=== PATIENT | female | born 1945 | race Caucasian/White ===

== ENCOUNTER 2019-08-30 11:42 | Emergency (ER) | payer MEDICARE, OTHER ==
[~2019-08-30] VITALS: Ht 172.7 cm; Wt 90.7 kg
[2019-08-30] MEDS ORDERED: SODIUM CHLORIDE 0.9% 500ML 500 ML IV STA (12:07)
[2019-08-30] MEDS ORDERED: CLONIDINE HCL 0.1 MG TAB PO ONE ×2 (12:15→14:15)
[2019-08-30] MEDS ORDERED: DIPHENHYDRAMINE HCL INJ 50 MG/ML VIAL IV ONE (12:15)
[2019-08-30] MEDS ORDERED: PROMETHAZINE 12.5MG/ NACL 0.9% 12.5 MG/50 ML BAG IV ONE (12:15)
[2019-08-30] MEDS ORDERED: DEXAMETHASONE SOD PHOS 10 MG/1 ML VIAL IV ONE (12:15)
[2019-08-30] MEDS ORDERED: ONDANSETRON HCL INJ 2MG/ML 2ML 2 MG/ML VIAL IV PRN (12:15)
[2019-08-30] MEDS ORDERED: HYDRALAZINE HCL 20 MG/ML VIAL IV ONE (12:15)
[2019-08-30] MEDS ORDERED: DEXAMETHASONE SOD PHOS 10 MG/1 ML VIAL ONE (12:55)
[2019-08-30] MEDS ORDERED: CLONIDINE HCL 0.1 MG TAB ONE ×2 (12:55→13:55)
[2019-08-30] MEDS ORDERED: DIPHENHYDRAMINE HCL INJ 50 MG/ML VIAL ONE (12:55)
[2019-08-30] MEDS ORDERED: PROMETHAZINE HCL (IM) 25 MG/ML VIAL ONE (12:55)
[2019-08-30] MEDS ORDERED: HYDRALAZINE HCL 20 MG/ML VIAL ONE (12:55)
[2019-08-30] MEDS ORDERED: SODIUM CHLORIDE 0.9% 50ML 50 ML ONE (12:56)
[2019-08-30] MEDS ORDERED: SODIUM CHLORIDE 0.9% 500ML 500 ML ONE (12:56)
[2019-08-30] MEDS ORDERED: ONDANSETRON HCL INJ 2MG/ML 2ML 2 MG/ML VIAL ONE (12:56)
[2019-08-30] MEDS ORDERED: LUNESTA3 MG (13:12)
[2019-08-30] MEDS ORDERED: ATORVASTATIN CA20 MG PO (13:12)
[2019-08-30] MEDS ORDERED: METOPROLOL SUCC50 MG PO (13:12)
[2019-08-30] MEDS ORDERED: LOSARTAN POTAS100 MG PO (13:12)
[2019-08-30] MEDS ORDERED: VITAMIN D32000 UNI2 (13:12)
[2019-08-30] MEDS ORDERED: OS-CAL 500-VIT1 EACH (13:12)
--- NOTE | 2019-08-30 13:28 | Diagnostic Imaging Report ---
Exams: Head and cervical spine CTs without IV contrast History: Headache, neck pain Comparison studies: None Technique: Axial images were obtained from the brain and cervical spine. Coronal and sagittal images reconstructed from the axial data. Dose modulation, iterative reconstruction, and/or weight based adjustment of the mA/kV was utilized to reduce the radiation dose to as low as reasonably achievable. Intravenous contrast: None Findings: Head CT: Scalp: No abnormalities. Bones: No fractures, blastic or lytic lesions. Extra-axial spaces: No masses. No fluid collections. Brain sulci: Mildly prominent. Ventricles: Mild compensatory dilatation. No hydrocephalus. Parenchyma: No abnormal densities. No masses, acute hemorrhage, acute or chronic vascular insults. Sellar/suprasellar region: No abnormalities. Craniocervical junction: The foramen magnum is patent. No Chiari one malformation. Included paranasal sinuses: Clear. Middle ear mastoid cavities: Clear. Cervical spine CT: Fractures: None. Soft tissues: No gross abnormalities. Atlantoaxial articulation: Intact. Alignment: Normal cervical lordotic curvature. Minimal degenerative retrolisthesis of C7 on T1. Cervicomedullary junction: No abnormalities. The foramen magnum is patent. Vertebrae: No infection or neoplasm. Degenerative changes: Degenerative changes present at the anterior atlantodental articulation with narrowing of the atlantodental interval with possible fusion of the dens with the anterior C1 arch and enthesophyte formation. Disc degeneration, mild at C2-C3 and at C3-C4, moderate C4-C5, severe at C5-C6 and at C6-C7 and mild at C7-T1 and T1-T2. Disc osteophyte complexes from C3 to C7 indent the thecal sac and result in mild canal stenosis. Advanced multilevel facet arthrosis with fused facets on the left at C7-T1. Multilevel uncovertebral and facet arthrosis result in multilevel foraminal stenosis which is severe right and moderate left at C3-C4 and at C4-C5, severe bilaterally at C5-C6 and moderate bilaterally at C6-C7. Moderate left and mild right foraminal stenosis at C7-T1 due to minimal anterolisthesis of C7 on T1 and facet arthrosis on the left. Incidental findings: Bilateral intraocular lens replacements. Mildly enlarged heterogeneous multinodular thyroid gland. Calcified atherosclerosis in the left carotid bulb. IMPRESSION: Head CT: 1. No acute abnormalities. 2. Mild age-related generalized parenchymal volume loss. Cervical spine CT: 1. No acute osseous abnormalities. 2. 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 3. Cannot exclude ligament, spinal cord and or vascular abnormalities on the basis of this examination. Signed by: Dr. Jaden Good M.D. on 08/30/2019 1:25 PM
[2019-08-30 14:28] VITALS: BP 149/72
== END 2019-08-30 14:26 | disposition home or self-care (01) ==
LOC: FSED 11:42
DX: G44.219 Episodic tension-type headache, not intractable (principal); S16.1XXA Strain of muscle, fascia and tendon at neck level, initial encounter; J04.0 Acute laryngitis; J06.9 Acute upper respiratory infection, unspecified; I10 Essential (primary) hypertension; E78.5 Hyperlipidemia, unspecified
CPT/HCPCS: 70450; 72125; 80053; 81003; 83518; 85025; 87400; 96374; 96375; 99284; J1100; J1200; J2405; J2550; J7040; J0360

== ENCOUNTER 2021-01-10 15:14 | Inpatient (IN) | payer MEDICARE, OTHER ==
[~2021-01-10] VITALS: Ht 172.7 cm; Wt 85.4 kg
[~2021-01-10 15:14] MED LIST: ATORVASTATIN CA20 MG PO; LOSARTAN POTAS100 MG PO; LUNESTA3 MG PO; METOPROLOL SUCC50 MG PO; OS-CAL 500-VIT1 EACH; VITAMIN D32000 UNI2 PO
[2021-01-10] MEDS ORDERED: ONDANSETRON HCL INJ 2MG/ML 2ML 2 MG/ML VIAL IV STA (15:30)
[2021-01-10] MEDS ORDERED: SODIUM CHLORIDE 0.9% 1000ML 1,000 ML IV STA (15:30)
[2021-01-10 15:38] LABS: BASOPHILS % 0.5 % (0.0-1.0); EOSINOPHILS # (AUTO) 0.1 (0.0-0.4); EOSINOPHILS % 1.8 % (0.0-6.0); HEMATOCRIT 47.7 % (34.2-44.1); HEMOGLOBIN 15.6 g/dL (12.0-16.0); LYMPHOCYTES # (AUTO) 1.7 (1.0-3.2); LYMPHOCYTES % 23.1 % (18.0-39.1); MEAN CORPUSCULAR HEMOGLOBIN 31.1 pg (28-32); MEAN CORPUSCULAR HGB CONC 32.7 g/dL (31-35); MONOCYTES # (AUTO) 0.8 (0.2-0.8); MONOCYTES % 10.9 % (4.4-11.3); NEUTROPHILS # (AUTO) 4.7 (2.1-6.9); NEUTROPHILS % 63.3 % (38.7-80.0); PLATELET COUNT 286 x10e3/uL (140-360); RED BLOOD COUNT 5.02 x10e6/uL (3.6-5.1); RED CELL DISTRIBUTION WIDTH 12.7 % (11.7-14.4)
[2021-01-10 16:02] LABS: ALBUMIN 3.8 g/dL (3.5-5.0); ANION GAP 16.4 mmol/L (8-16); CALCIUM 9.7 mg/dL (8.4-10.2); CREATININE, SERUM 0.99 mg/dL (0.57-1.11); MAGNESIUM 1.9 MG/DL (1.3-2.1); POTASSIUM 3.4 mmol/L (3.5-5.1)
[2021-01-10 16:09] LABS: CREATINE KINASE MB 1.7 ng/mL (0-5.0)
[2021-01-10] MEDS ORDERED: POTASSIUM CHLORIDE 20 MEQ TAB CR PO STA (17:30)
[2021-01-10] MEDS ORDERED: ENOXAPARIN SODIUM INJ 100 MG/ML SYR SC ONE (17:45)
[2021-01-10] MEDS ORDERED: ONDANSETRON HCL INJ 2MG/ML 2ML 2 MG/ML VIAL IV PRN (17:45)
[2021-01-10] MEDS ORDERED: SODIUM CHLORIDE 0.9% 1000ML 1,000 ML IV SCH (17:45)
[2021-01-10] MEDS: FAMOTIDINE 20 MG/2 ML VIAL IV SCH (21:46)
[2021-01-10] MEDS ORDERED: ACETAMINOPHEN 325 MG TAB PO PRN (22:00)
[2021-01-10 22:05] VITALS: BP 143/87
[2021-01-10 22:09] LABS: CLARITY,URINE SL CLOUDY (CLEAR); COLOR,URINE YELLOW (YELLOW); KETONES,URINE NEGATIVE (NEGATIVE); LEUKOCYTE ESTERASE ,URINE NEGATIVE (NEGATIVE); NITRITE,URINE NEGATIVE (NEGATIVE); PROTEIN,URINE DIPSTICK NEGATIVE (NEGATIVE); URINE UROBILINOGEN 0.2 mg/dL (0.2 - 1)
[2021-01-10 22:10] VITALS: BP 143/87
[2021-01-10 22:14] LABS: BACTERIA,URINE MODERATE /HPF; EPITHELIAL CELLS,URINE FEW /LPF; RBC,URINE 0-5 /HPF (0-5)
[2021-01-10] MEDS ORDERED: HYDRALAZINE HCL 20 MG/ML VIAL IV PRN (23:00)
[2021-01-10] MEDS ORDERED: CEFTRIAXONE 1 GM in SODIUM CHLORIDE 0.9% 50ML 50 ML IV ONE (23:00)
[2021-01-10] MEDS: SOD CHL 0.45%/POT CHL 20MEQ 1,000 ML IV SCH (23:47)
[2021-01-10 23:54] VITALS: BP 134/80
[2021-01-11] VITALS (7 sets, daily range): BP systolic 106–136; BP diastolic 73–83
[2021-01-11 00:28] LABS: CREATINE KINASE MB 1.8 ng/mL (0-5.0)
[2021-01-11 05:35] LABS: BASOPHILS % 0.4 % (0.0-1.0); EOSINOPHILS # (AUTO) 0.2 (0.0-0.4); EOSINOPHILS % 2.4 % (0.0-6.0); HEMATOCRIT 44.6 % (34.2-44.1); LYMPHOCYTES # (AUTO) 2.5 (1.0-3.2); LYMPHOCYTES % 34.8 % (18.0-39.1); MEAN CORPUSCULAR HEMOGLOBIN 31.4 pg (28-32); MEAN CORPUSCULAR HGB CONC 31.4 g/dL (31-35); MONOCYTES # (AUTO) 0.7 (0.2-0.8); MONOCYTES % 9.2 % (4.4-11.3); NEUTROPHILS # (AUTO) 3.7 (2.1-6.9); NEUTROPHILS % 53.1 % (38.7-80.0); PLATELET COUNT 193 x10e3/uL (140-360); RED BLOOD COUNT 4.46 x10e6/uL (3.6-5.1)
[2021-01-11 05:50] LABS: ALBUMIN 3.1 g/dL (3.5-5.0); ANION GAP 15.4 mmol/L (8-16); CALCIUM 8.8 mg/dL (8.4-10.2); CHOL/HDL RATIO 3.7 (3.0-3.6); CREATININE, SERUM 0.89 mg/dL (0.57-1.11); POTASSIUM 3.4 mmol/L (3.5-5.1)
[2021-01-11 06:13] LABS: CREATINE KINASE MB 1.8 ng/mL (0-5.0)
[2021-01-11] MEDS: MECLIZINE HCL 12.5 MG TAB PO SCH ×5 (06:15→23:47)
[2021-01-11] MEDS: FAMOTIDINE 20 MG/2 ML VIAL IV SCH ×2 (06:15→16:53)
[2021-01-11] MEDS ORDERED: METOPROLOL TARTRATE 50 MG TAB PO SCH (09:00)
[2021-01-11] MEDS ORDERED: ENOXAPARIN SOD INJ 40 MG/0.4 ML SYR SC SCH (09:00)
[2021-01-11] MEDS: CEFTRIAXONE 1 GM in SODIUM CHLORIDE 0.9% 50ML 50 ML IV SCH ×2 (09:18→20:23)
[2021-01-11] MEDS: SOD CHL 0.45%/POT CHL 20MEQ 1,000 ML IV SCH ×2 (09:25→20:23)
[2021-01-11] MEDS: APIXABAN 5 MG TABLET PO SCH (16:53)
[2021-01-11] MEDS: METOPROLOL TARTRATE 25 MG TAB PO SCH (16:53)
[2021-01-12] VITALS (8 sets, daily range): BP systolic 129–169; BP diastolic 82–96
[2021-01-12] MEDS: MECLIZINE HCL 12.5 MG TAB PO SCH (05:48)
[2021-01-12] MEDS: FAMOTIDINE 20 MG/2 ML VIAL IV SCH ×2 (05:48→16:59)
[2021-01-12] MEDS: SOD CHL 0.45%/POT CHL 20MEQ 1,000 ML IV SCH ×2 (05:48→16:59)
[2021-01-12 06:24] LABS: BASOPHILS % 0.5 % (0.0-1.0); EOSINOPHILS # (AUTO) 0.2 (0.0-0.4); EOSINOPHILS % 2.4 % (0.0-6.0); HEMATOCRIT 41.3 % (34.2-44.1); HEMOGLOBIN 12.9 g/dL (12.0-16.0); LYMPHOCYTES # (AUTO) 2.2 (1.0-3.2); LYMPHOCYTES % 33.3 % (18.0-39.1); MEAN CORPUSCULAR HEMOGLOBIN 30.6 pg (28-32); MEAN CORPUSCULAR HGB CONC 31.2 g/dL (31-35); MEAN CORPUSCULAR VOLUME 97.9 fL (81-99); MONOCYTES # (AUTO) 0.6 (0.2-0.8); MONOCYTES % 9.4 % (4.4-11.3); NEUTROPHILS # (AUTO) 3.6 (2.1-6.9); NEUTROPHILS % 54.1 % (38.7-80.0); PLATELET COUNT 235 x10e3/uL (140-360); RED BLOOD COUNT 4.22 x10e6/uL (3.6-5.1); RED CELL DISTRIBUTION WIDTH 12.8 % (11.7-14.4)
[2021-01-12 06:43] LABS: ANION GAP 13.6 mmol/L (8-16); CALCIUM 9.2 mg/dL (8.4-10.2); CREATININE, SERUM 0.98 mg/dL (0.57-1.11); POTASSIUM 3.6 mmol/L (3.5-5.1)
[2021-01-12] MEDS: METOPROLOL TARTRATE 25 MG TAB PO SCH (09:00)
[2021-01-12] MEDS: APIXABAN 5 MG TABLET PO SCH ×2 (09:16→16:59)
[2021-01-12] MEDS: CEFTRIAXONE 1 GM in SODIUM CHLORIDE 0.9% 50ML 50 ML IV SCH ×2 (09:16→20:40)
[2021-01-12] MEDS ORDERED: BISACODYL 5 MG TAB EC PO PRN (10:00)
[2021-01-12] MEDS ORDERED: MECLIZINE HCL 12.5 MG TAB PO PRN (10:30)
[2021-01-12] MEDS: SENNA-S TABLET PO SCH ×2 (11:12→17:00)
[2021-01-12] MEDS: MAGNESIUM HYDROXIDE 30 ML UDC PO PRN (17:20)
[2021-01-13] VITALS (7 sets, daily range): BP systolic 122–140; BP diastolic 74–92
[2021-01-13] MEDS: SOD CHL 0.45%/POT CHL 20MEQ 1,000 ML IV SCH ×2 (01:08→11:29)
[2021-01-13] MEDS: FAMOTIDINE 20 MG/2 ML VIAL IV SCH ×2 (05:11→17:17)
[2021-01-13 05:16] LABS: BASOPHILS % 0.3 % (0.0-1.0); EOSINOPHILS # (AUTO) 0.2 (0.0-0.4); EOSINOPHILS % 3.1 % (0.0-6.0); HEMATOCRIT 37.6 % (34.2-44.1); HEMOGLOBIN 12.1 g/dL (12.0-16.0); LYMPHOCYTES % 27.7 % (18.0-39.1); MEAN CORPUSCULAR HEMOGLOBIN 30.9 pg (28-32); MEAN CORPUSCULAR HGB CONC 32.2 g/dL (31-35); MEAN CORPUSCULAR VOLUME 96.2 fL (81-99); MONOCYTES # (AUTO) 0.7 (0.2-0.8); MONOCYTES % 9.3 % (4.4-11.3); NEUTROPHILS # (AUTO) 4.3 (2.1-6.9); NEUTROPHILS % 59.3 % (38.7-80.0); PLATELET COUNT 218 x10e3/uL (140-360); RED BLOOD COUNT 3.91 x10e6/uL (3.6-5.1); RED CELL DISTRIBUTION WIDTH 12.8 % (11.7-14.4)
[2021-01-13 05:42] LABS: ALBUMIN 3.1 g/dL (3.5-5.0); ALBUMIN/GLOBULIN RATIO 1.1 (0.8-2.0); ANION GAP 13.7 mmol/L (8-16); CALCIUM 8.4 mg/dL (8.4-10.2); CREATININE, SERUM 0.87 mg/dL (0.57-1.11); POTASSIUM 3.7 mmol/L (3.5-5.1)
[2021-01-13] MEDS: APIXABAN 5 MG TABLET PO SCH ×2 (08:23→16:20)
[2021-01-13] MEDS: CEFTRIAXONE 1 GM in SODIUM CHLORIDE 0.9% 50ML 50 ML IV SCH ×2 (08:24→22:43)
[2021-01-13] MEDS: SENNA-S TABLET PO SCH ×2 (09:00→16:20)
[2021-01-13] MEDS ORDERED: LACTATED RINGER'S 1,000 ML ONE (14:06)
[2021-01-13] MEDS: MAGNESIUM HYDROXIDE 30 ML UDC PO PRN (17:41)
[2021-01-13] MEDS ORDERED: AMLODIPINE BES2.5 MG PO (18:47)
[2021-01-13] MEDS ORDERED: VITAMIN D3125 MCG PO (18:47)
[2021-01-13] MEDS ORDERED: CITRACAL-D3 MA1 EACH PO (18:47)
[2021-01-13] MEDS ORDERED: PROBIOTIC PO (18:47)
[2021-01-13] MEDS ORDERED: NON-FORMULARY MEDICATION (Eszopiclone (Lunesta) 3 MG) PO SCH (21:00)
[2021-01-14] VITALS: BP 145/97
[2021-01-14 04:00] VITALS: BP 146/86
[2021-01-14] MEDS: FAMOTIDINE 20 MG/2 ML VIAL IV SCH (06:28)
[2021-01-14 07:53] VITALS: BP 149/84
[2021-01-14 08:04] VITALS: BP 149/84
[2021-01-14] MEDS: SENNA-S TABLET PO SCH ×2 (08:55→09:02)
[2021-01-14] MEDS ORDERED: AMLODIPINE BESYLATE 5 MG TAB PO SCH (09:00)
[2021-01-14] MEDS: APIXABAN 5 MG TABLET PO SCH (09:01)
[2021-01-14] MEDS: CEFTRIAXONE 1 GM in SODIUM CHLORIDE 0.9% 50ML 50 ML IV SCH (09:01)
[2021-01-14] MEDS ORDERED: SENNA LAX8.6 MG PO (11:48)
[2021-01-14] MEDS ORDERED: ELIQUIS5 MG PO (11:48)
[2021-01-14] MEDS ORDERED: MECLIZINE HCL12.5 MG PO (11:48)
[2021-01-14] MEDS ORDERED: ONDANSETRON ODT4 MG PO (11:49)
== END 2021-01-14 12:13 | disposition home or self-care (01) | DRG 310 ==
LOC: ER 15:35 → ERHOLD 21:12 → MED/SURG 22:08
PROVIDERS: ADMIT Internal Medicine; ATTEND Internal Medicine
DX: I48.91 Unspecified atrial fibrillation (principal); Z79.01 Long term (current) use of anticoagulants; I48.0 Paroxysmal atrial fibrillation; E78.5 Hyperlipidemia, unspecified; M16.11 Unilateral primary osteoarthritis, right hip; Z96.641 Presence of right artificial hip joint; Z90.710 Acquired absence of both cervix and uterus; Z87.891 Personal history of nicotine dependence; R42 Dizziness and giddiness; E66.9 Obesity, unspecified; Z68.28 Body mass index [BMI] 28.0-28.9, adult; I10 Essential (primary) hypertension; Z20.822 Contact with and (suspected) exposure to COVID-19
CPT/HCPCS: 36415; 70450; 70540; 70551; 71046; 80048; 80053; 80061; 81001; 82550; 82553; 82948; 83735; 84443; 84484; 85025; 87086; 93005; 93306; 93880; 96361; 96367; 96376; 99284; J0696; J1650; J2405; J7030; J7121; U0002

== ENCOUNTER → 2022-05-19 | Outpatient (CLI) | payer MEDICARE ==
[~2022-05-19] MED LIST changes: +AMLODIPINE BES2.5 MG PO; +CITRACAL-D3 MA1 EACH PO; +ELIQUIS5 MG PO; +MECLIZINE HCL12.5 MG PO; +MIDAZOLAM HCL 2 MG/2 ML VIAL ONE; +ONDANSETRON ODT4 MG PO; +PROBIOTIC PO; +SENNA LAX8.6 MG PO; +VITAMIN D3125 MCG PO
== END ==
LOC: MRI 08:05
PROVIDERS: ATTEND Physical Medicine & Rehabilitation Pain Medicine
DX: M47.22 Other spondylosis with radiculopathy, cervical region (principal)
CPT/HCPCS: 72141; J2250